=== PATIENT | male | born 1970 | race Caucasian/White ===

== ENCOUNTER 2022-08-24 17:36 | Emergency (ER) | payer OTHER ==
[~2022-08-24] VITALS: Ht 190.5 cm; Wt 104.5 kg
[2022-08-24] MEDS ORDERED: dexamethasone sod phosphate 10mg/ml inj IV STA (17:46)
[2022-08-24] MEDS ORDERED: ampicillin/sulbac 3gm/NS 100ml 100 ML IV STA (17:46)
[2022-08-24] MEDS ORDERED: normal saline 1000ML IV soln IVB ONE (17:50)
[2022-08-24] MEDS ORDERED: ketorolac trometh. 30mg/ml inj. IV ONE (17:50)
[2022-08-24] MEDS ORDERED: iohexol 300mg/ml 100ml inj. ONE (18:01)
[2022-08-24 18:37] LABS: BASOPHILS % (AUTO) 0.2 % (0-1); EOSINOPHILS % (AUTO) 0.1 % (0-6); HEMATOCRIT 39.7 % (42.0-52.0); HEMOGLOBIN 13.2 g/dl (14.0-17.9); LYMPHOCYTES # (AUTO) 1.5 X10'3 (1.1-4.8); LYMPHOCYTES % (AUTO) 8.3 % (21-51); MEAN CORPUSCULAR HEMOGLOBIN 26.9 PG (27.0-31.0); MEAN CORPUSCULAR HGB CONC 33.2 g/dL (33.0-36.5); MEAN CORPUSCULAR VOLUME 81.2 FL (78-98); MEAN PLATELET VOLUME 8.1 FL (7.4-10.4); MONOCYTES # (AUTO) 1.3 X10'3 (0-0.9); MONOCYTES % (AUTO) 6.9 % (2-12); NEUTROPHILS # (AUTO) 15.4 X10'3 (1.8-7.7); NEUTROPHILS % (AUTO) 84.5 % (42-75); PLATELET COUNT 270 X10'3 (140-440); RED BLOOD COUNT 4.89 X10'6 (4.70-6.10); RED CELL DISTRIBUTION WIDTH 16.4 % (11.5-14.5); WHITE BLOOD COUNT 18.2 X10'3 (4.5-11.0)
[2022-08-24 18:47] LABS: ALANINE AMINOTRANSFERASE 37 U/L (12-78); ALBUMIN 2.9 G/DL (3.4-5.0); ALBUMIN/GLOBULIN RATIO 0.6 (1.1-1.5); ALKALINE PHOSPHATASE 117 IU/L (46-116); ANION GAP 10 (8-16); ASPARTATE AMINO TRANSFERASE 26 U/L (10-37); BILIRUBIN,TOTAL 0.4 MG/DL (0.1-1.0); BLOOD UREA NITROGEN 17 MG/DL (7-18); BUN/CREATININE RATIO 18.1 (5.4-32.0); CALCIUM 8.7 MG/DL (8.5-10.1); CHLORIDE 100 MMOL/L (99-107); CREATININE 0.94 MG/DL (0.60-1.10); GLUCOSE 112 MG/DL (70-104); POTASSIUM 3.9 MMOL/L (3.5-5.1); SODIUM 133 MMOL/L (135-145); TOTAL CARBON DIOXIDE 23.5 MMOL/L (24-32); TOTAL PROTEIN 7.7 G/DL (6.4-8.2); eGFR 85 ML/MIN
[2022-08-24 22:12] VITALS: BP 136/78
[2022-08-24] MEDS ORDERED: amox tr/potassium clavulanate 875/125mg TAB PO ONE (23:20)
[2022-08-24] MEDS ORDERED: AMOX-117 PO (23:23)
--- NOTE | 2022-08-24 23:45 | NUR ---
iv dc'd pt being discharged. dressing applied
== END 2022-08-24 23:46 | disposition home or self-care (01) ==
LOC: ER 17:38 → EEVIPCON 17:38 → ER 23:46
DX: K04.7 Periapical abscess without sinus (principal); Z20.822 Contact with and (suspected) exposure to COVID-19; K12.2 Cellulitis and abscess of mouth; R79.1 Abnormal coagulation profile; Z79.899 Other long term (current) drug therapy
CPT/HCPCS: 36415; 70491; 80053; 85025; 85610; 87635; 96365; 96375; 99285; C9803; J0295; J1100; J1885; J3490; J7030; Q9967